=== PATIENT | female | born 1945 | race Caucasian/White ===

== ENCOUNTER → 2021-11-02 | Day surgery (SDC) | payer OTHER ==
[~2021-11-02] VITALS: Ht 154.9 cm; Wt 74.8 kg
[~2021-11-02] MED LIST: ACETAMINOPHEN-1 EAC1 PO; ADULT LOW DOSE81 MG; CALCIUM500 MG PO; DAILY VITE1 EAC1 PO; METFORMIN HCL500 MG PO; METFORMIN PO; PROBIOTIC1 EAC7 PO
--- NOTE | ~2021-11-02 | O ---
[facility] [place] [address] OPERATIVE REPORT Name: ANNABELLE SALAZAR Room #: REG [facility].#: [id number] Admission: 11/02/21 Attend Phys: Jacinto Morales MD Discharge: Date of : 45 Report #: [id number] THIS REPORT FOR: cc: Radha Mejias Linda J. DO White, William L. MD ~ cc: Radha Mejias DO, DATE OF SERVICE: 11/02/2021 SURGEON: Jacinto Morales MD BLADDER TRIMMER: None. PREOPERATIVE DIAGNOSIS: Bilateral upper lid ptosis with superior visual field defects both eyes. POSTOPERATIVE DIAGNOSIS: Bilateral upper lid ptosis with superior visual field defects both eyes. OPERATION PERFORMED: Bilateral upper lid functional ptosis repair. BLADDER TRIMMER: None. ANESTHESIA: Local with IV sedation. COMPLICATIONS: None. INDICATIONS FOR PROCEDURE: This patient has bilateral upper lid ptosis with superior visual field loss both eyes. Visual field testing demonstrates dense superior visual defects. Retesting with the upper lid elevated shows an improvement in visual field loss of over 30% and in excess of 12 degrees. The current procedure is being undertaken in order to improve the patient's visual function. Informed consent was obtained to include but not limited to the risk of loss of vision, bleeding, infection, scarring, failure to improve the problem and need for further surgery, such as adjustment of lid height. DESCRIPTION OF PROCEDURE: The patient was taken to the operating room, where 2% Xylocaine with epinephrine mixed with equal parts of 0.75% Marcaine with Wydase was administered transcutaneously to each upper lid. The patient was then prepped and draped in the usual sterile fashion. An upper lid crease incision was then made bilaterally and the dissection was carried down until the orbital septum was identified. The orbital septum was [address] [address] OPERATIVE REPORT Name: MARIEANNABELLE Room #: REG [facility]#: [id number] Admission: 11/02/21 Attend Phys: Jacinto Morales MD Discharge: Date of : 45 Report #: [id number] then cleared and the preaponeurotic fat identified. The levator aponeurosis was then disinserted from the anterior surface of the tarsal plate and dissected free in the avascular Farmer's muscle plane. The aponeurosis was then advanced and reattached to the anterior surface of the tarsal plate with interrupted mattress 6-0 Novafil sutures on each side, adjusting for height and contour. The redundant aponeurosis was then amputated. The incision was then closed with multiple interrupted 6-0 chromic sutures that were used to recreate an upper lid crease. The skin was closed with a running 6-0 plain gut suture. The wound was then cleaned and dressed with ophthalmic antibiotic ointment followed by a Telfa pad. The patient was transported to the recovery area, having tolerated the procedure well with no anesthesia or operative complications being noted. By: [id number] Jacinto Morales MD /nt
[2021-11-02 07:15] VITALS: BP 160/57
== END | disposition home or self-care (01) ==
LOC: OR 06:12
PROVIDERS: ATTEND Ophthalmology
DX: H02.413 Mechanical ptosis of bilateral eyelids (principal); H53.462 Homonymous bilateral field defects, left side; H53.461 Homonymous bilateral field defects, right side; Z98.890 Other specified postprocedural states; Z98.41 Cataract extraction status, right eye; Z79.899 Other long term (current) drug therapy; Z98.42 Cataract extraction status, left eye; Z20.822 Contact with and (suspected) exposure to COVID-19; Z85.828 Personal history of other malignant neoplasm of skin; Z87.891 Personal history of nicotine dependence
CPT/HCPCS: 50101; 50386; 50398; 51636; 56528; 56531; 62110; 62850